=== PATIENT | female | born 1995 | race Asian ===

== ENCOUNTER 2025-08-06 08:51 | Outpatient (REF) | payer OTHER, SELFPAY ==
--- NOTE | ~2025-08-06 | US_ITS ---
EXAMINATION: US PELVIS CLINICAL INFORMATION: IRREGULAR BLEEDING, PAIN LLQ. LMP 07/20/2025 COMPARISON: None available. TECHNIQUE: Ultrasound of the pelvis is performed using both transabdominal and transvaginal transducers along with Doppler. Transvaginal imaging is performed due to inadequate visualization transabdominally. FINDINGS: Uterus: The uterus is anteverted and measures 8.6 x 4.4 x 5.5 cm. There may be an arcuate type uterus. Slightly heterogeneous appearing endometrium. The double wall endometrial thickness is normal measuring 1.3 mm. The uterus is smooth in contour and has normal myometrial echogenicity. No visible fibroid. Adnexa: Both ovaries are visualized. There is normal color flow to the adnexa. There is no ovarian torsion. Right ovary measures 2.5 x 2 x 1.5 cm. Normal. Left ovary measures 3 x 2.3 x 4.1 cm. Normal. Trace ascites. 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 Slightly heterogeneous appearing endometrium. Endometrial thickness is normal measuring 1.3 cm. Normal-appearing ovaries. Electronically signed by: Mansi Kamara MD 08/06/2025 01:09 PM [email or web address]
== END 2025-08-06 08:52 | disposition home or self-care (01) ==
LOC: HO.UMASIMG 08:51
PROVIDERS: Visit Provider Nurse Practitioner Women's Health
DX: Z01.419 Encounter for gynecological examination (general) (routine) without abnormal findings (principal); N93.8 Other specified abnormal uterine and vaginal bleeding
CPT/HCPCS: 76830; 76856

== ENCOUNTER → 2025-08-06 11:36 | Outpatient (BNV) | payer OTHER, SELFPAY | PROVIDERS: Visit Provider Radiology Diagnostic Radiology | DX: N93.8 Other specified abnormal uterine and vaginal bleeding (principal); R10.32 Left lower quadrant pain | CPT/HCPCS: 76830; 76856 ==